=== PATIENT | female | born 1950 | race Two or more races ===

== ENCOUNTER 2018-05-01 08:03 | Emergency (ER) | payer BC ==
[~2018-05-01] VITALS: Ht 162.6 cm; Wt 59.0 kg
[2018-05-01 08:25] VITALS: BP 137/89; Ht 162.6 cm; Wt 59.0 kg
== END 2018-05-01 09:26 | disposition home or self-care (01) ==
LOC: ED 08:03
DX: S93.601A Unspecified sprain of right foot, initial encounter (principal); Z88.6 Allergy status to analgesic agent; W01.0XXA Fall on same level from slipping, tripping and stumbling without subsequent striking against object, initial encounter; Y93.89 Activity, other specified; Y92.89 Other specified places as the place of occurrence of the external cause; Y99.8 Other external cause status
CPT/HCPCS: Q0092

== ENCOUNTER 2018-05-03 07:39 | Emergency (ER) | payer BC ==
[~2018-05-03] VITALS: Ht 162.6 cm; Wt 63.5 kg
[2018-05-03 07:46] VITALS: Ht 162.6 cm; Wt 63.5 kg
[2018-05-03 10:29] VITALS: BP 137/98
== END 2018-05-03 10:29 | disposition home or self-care (01) ==
LOC: ED 07:39
DX: S93.691A Other sprain of right foot, initial encounter (principal); Z88.6 Allergy status to analgesic agent; W01.0XXA Fall on same level from slipping, tripping and stumbling without subsequent striking against object, initial encounter; Y93.89 Activity, other specified; Y92.89 Other specified places as the place of occurrence of the external cause; Y99.8 Other external cause status
CPT/HCPCS: Q0092